=== PATIENT | female | born 2000 | race Caucasian/White ===

== ENCOUNTER 2018-11-22 08:38 | Emergency (ER) | payer OTHER ==
[~2018-11-22] VITALS: Ht 170.2 cm; Wt 63.5 kg
[2018-11-22] MEDS ORDERED: IBUPROFEN 600 MG TABLET PO ONE (09:15)
--- NOTE | 2018-11-22 09:15 | NUR ---
Patient discharged to home in stable conditon. Written and verbal after care instructions given. Patient verbalizes understanding of instructions.pt mother will come to take the pt home.
[2018-11-22 09:16] VITALS: BP 111/61
[2018-11-22] MEDS ORDERED: IBUPROFEN 600 MG TABLET ONE (09:18)
--- NOTE | 2018-11-22 10:19 | NUR ---
pt walks in steady gait.
== END 2018-11-22 10:20 | disposition home or self-care (01) ==
LOC: ER 08:38
DX: S16.1XXA Strain of muscle, fascia and tendon at neck level, initial encounter (principal); J45.909 Unspecified asthma, uncomplicated; R51 Headache; V89.2XXA Person injured in unspecified motor-vehicle accident, traffic, initial encounter; Y93.89 Activity, other specified; Y92.89 Other specified places as the place of occurrence of the external cause; Y99.8 Other external cause status
CPT/HCPCS: A4663